=== PATIENT | female | born 1990 | race Caucasian/White ===

== ENCOUNTER 2019-04-12 20:41 | Emergency (ER) | payer BC ==
[2019-04-12] MEDS: DIPHENHYDRAMINE 50 MG CAP PO (21:12)
[2019-04-12] MEDS: FAMOTIDINE 20 MG TAB PO (21:12)
[2019-04-12] MEDS: DEXAMETHASONE 4 MG TAB PO (21:39)
== END 2019-04-12 22:38 | disposition home or self-care (01) ==
LOC: E/R 20:41
DX: L50.0 Allergic urticaria (principal)
CPT/HCPCS: 99283; Z7502